=== PATIENT | male | born 1965 | race Caucasian/White ===

== ENCOUNTER 2019-11-09 05:50 | Day surgery (SDC) | payer MEDICARE, MEDICAID ==
[~2019-11-09] VITALS: Ht 167.6 cm; Wt 82.3 kg
[~2019-11-09 05:50] MED LIST: ATOR20TA37 PO; SEMA0.25 SQ
[2019-11-09] MEDS ORDERED: LACTATED RINGERS 1,000 ML IV SCH (07:09)
[2019-11-09 07:10] VITALS: BP 159/88
[2019-11-09] MEDS ORDERED: SODIUM CHLORIDE 0.9% 1,000 ML IV SCH (07:20)
[2019-11-09] MEDS ORDERED: DULA1.5P SC (07:54)
[2019-11-09] MEDS ORDERED: BP MED PO (07:54)
[2019-11-09 08:14] LABS: BASOPHILS # (AUTO) 0.04 x10^3/uL (0-0.1); BASOPHILS % (AUTO) 1 % (0-1); EOSINOPHILS # (AUTO) 0.19 x10^3/uL (0-0.4); EOSINOPHILS % (AUTO) 3 % (1-7); LYMPHOCYTES % (AUTO) 27 % (22-44); MD NO; MEAN CORPUSCULAR HEMOGLOBIN 32.9 pg (27.5-34.5); MEAN CORPUSCULAR HGB CONC 34.4 g/dL (33.2-36.2); MEAN CORPUSCULAR VOLUME 95.7 fL (81-97); MEAN PLATELET VOLUME 8.2 fL (7.4-10.4); MONOCYTES # (AUTO) 0.63 x10^3/uL (0.2-0.8); MONOCYTES % (AUTO) 10 % (2-9); NEUTROPHILS # (AUTO) 3.96 x10^3/uL (1.8-6.8); NEUTROPHILS % (AUTO) 60 % (42-75); PLATELET COUNT 208 x10^3/uL (130-400); RED CELL DISTRIBUTION WIDTH 12.4 % (9.4-14.8)
[2019-11-09 08:34] LABS: INTERNATIONAL NORMALIZED RATIO 0.97 (0.93-1.1)
[2019-11-09 08:35] LABS: PROTHROMBIN TIME 10.3 Seconds (9.6-11.5)
[2019-11-09] MEDS ORDERED: MIDAZOLAM 1 MG/ML, 2ML ONE (08:36)
[2019-11-09] MEDS ORDERED: FENTANYL PF 100 MCG/2ML ONE (08:36)
[2019-11-09] MEDS ORDERED: OXYcodone 5 MG/5 ML ORAL.SOL UDC PO PRN (09:00)
[2019-11-09] MEDS ORDERED: FENTANYL PF 100 MCG/2ML IV PRN (09:00)
[2019-11-09] MEDS ORDERED: HYDROmorphone 2 MG/ML, 1ML IVPush PRN (09:00)
[2019-11-09] MEDS ORDERED: hydrALAzine 20 MG/ML, 1ML IV PRN (09:00)
[2019-11-09] MEDS ORDERED: ONDANSETRON 2MG/ML, 2ML IV PRN (09:00)
[2019-11-09] MEDS ORDERED: MEPERIDINE/PF 25MG/ML,1ML IVPush PRN (09:00)
== END 2019-11-09 10:15 | disposition home or self-care (01) ==
LOC: OUT 05:50
PROVIDERS: ATTEND Internal Medicine
DX: R19.7 Diarrhea, unspecified (principal); K64.8 Other hemorrhoids; K74.60 Unspecified cirrhosis of liver; N18.6 End stage renal disease; Z87.891 Personal history of nicotine dependence
CPT/HCPCS: 43235; 45378; 80047; 82962; 85025; 85610; 85730; J2250; J3010